=== PATIENT | male | born 1980 | race Caucasian/White ===

== ENCOUNTER 2023-09-05 02:47 | Day surgery (SDC) | payer OTHER, SELFPAY ==
[2023-08-22 13:00] VITALS: BMI 27.3
--- NOTE | 2023-09-03 08:27 | SUR.PREOP ---
Patient called regarding upcoming procedure. Message left on pt's voicemail regarding appointment times.
--- NOTE | 2023-09-04 09:07 | P.PNAN_ITS ---
Anes - Initial Pre Proc Eval Procedure: Operation Date: 09/05/23 10:00 Proposed Procedures p Screening Colonoscopy - Rey Parsons MD Date/Time: 09/04/23 09:07 Surgeon: Rey Parsons MD Pre Op Diagnosis: FA Hx colon CA Patient Data Age: 43 Gender: M Height: 1.89 m Weight: 97.7 kg Allergies Allergy/AdvReac Type Severity Reaction Status Date / Time Penicillins Allergy Rash Verified 09/05/23 09:09 Home Medications Medication Instructions Recorded Confirmed Type No Home Medications 08/22/23 09/05/23 History Patient hx anesthesia problems: none Family hx anesthesia problems: none Results Review: All pre-operative results and documents have been reviewed as part of the pre- operative evaluation. [facility] [place] Social History Social History Living arrangements: with family Spiritual care concerns: No Anes - Eval Final PreProcedure Day of Procedure 09/04/23 09:07 Patient weight: overweight Heart: regular rate and rhythm Lungs: clear to auscultation Airway: Mallampati scale class II Neurological: alert and oriented Last oral intake: >/= 8 hours ASA classification: I Emergent: no Anesthetic plan: proceed Anesthesia type and monitoring: general GIVS and standard monitoring Results Review: All pre-operative results and documents have been reviewed as part of the pre- operative evaluation. Informed Consent: The patient's anesthetic plan and its attendant risks and benefits were discussed with the patient/family/POA. Questions were solicited and answers provided to the satisfaction of the patient/family/POA.
[2023-09-05 09:10] VITALS: BP 127/93; PULSE 92; RESP 18; TEMP 36.4; O2SAT 99; BMI 26.6
--- NOTE | 2023-09-05 09:16 | PM.HPGS ---
History of Present Illness History of Present Illness Consent: Risks, benefits, and alternatives have been discussed and questions answered. Patient agrees to proceed with procedure. Chief complaint: FA Hx colon CA Narrative: Torres Leo is a 43 year old male referred for colon cancer screening. He has a family history of colon cancer. Review of Systems Review of Systems: All systems reviewed & are unremarkable except as noted in HPI and below PMFSH Social History Social History Living arrangements: with family Spiritual care concerns: No Meds Home Medications and Allergies Home Medications Medication Instructions Recorded Confirmed Type No Home Medications 08/22/23 09/05/23 History Allergies Allergy/AdvReac Type Severity Reaction Status Date / Time Penicillins Allergy Rash Verified 09/05/23 09:09 Vital Signs Vital Signs - 24 hr 09/05/23 09:10 Temperature 36.4 C Pulse Rate 92 Respiratory Rate 18 Blood Pressure 127/93 H Pulse Oximetry 99 Oxygen Delivery Room Air Exam Resp: Auscultation: clear to auscultation bilaterally Cardio: Rate: regular rate Rhythm: regular rhythm GI: GI Palp: Yes Soft to palpation and No Tenderness to palpation present (GI) Assessment and Plan Assessment and plan (1) Colon cancer screening: Code(s): Z12.11 - Encounter for screening for malignant neoplasm of colon Status: Acute Assessment and Plan: Colonoscopy with possible biopsy or polypectomy or cautery or injection of substances.
[2023-09-05] MEDS: LACTATED RINGERS 1,000 ML 150 ML IV CONT (09:24)
[2023-09-05 10:06] VITALS: BP 117/79; PULSE 77; RESP 18; O2SAT 96
[2023-09-05 10:16] VITALS: BP 114/81; PULSE 74; RESP 13; O2SAT 97
[2023-09-05 10:26] VITALS: BP 138/98; PULSE 81; RESP 21; O2SAT 100
== END 2023-09-05 10:39 | disposition home or self-care (01) ==
PROVIDERS: PCP Physician Assistant; Visit Provider Internal Medicine Gastroenterology
PROC: 0DJD8ZZ Inspection of Lower Intestinal Tract, Via Natural or Artificial Opening Endoscopic (ICD-10-PCS; CPT 45378; principal; 2023-09-05 10:00)
DX: Z12.11 Encounter for screening for malignant neoplasm of colon (principal); K57.30 Diverticulosis of large intestine without perforation or abscess without bleeding; Z80.0 Family history of malignant neoplasm of digestive organs
CPT/HCPCS: 45378; J7120

== ENCOUNTER 2024-01-16 13:34 | Outpatient (CLI) | payer OTHER, SELFPAY ==
--- NOTE | ~2024-01-16 | XR_ITS ---
XR lumbar spine 2-3V DATE: 01/16/2024 13:51 INDICATION: Low back pain TECHNIQUE: AP, lateral, cone-down lateral lumbosacral views COMPARISON: None FINDINGS: There is mild lumbar dextroscoliosis. No fracture or bone destruction or spondylolisthesis. Lumbar limits interspaces appear relatively pre served. The lumbar pedicles are intact. The sacroiliac joints appear normal. IMPRESSION: Mild dextroscoliosis Reviewed, dictated and finalized at location A. IMPRESSION: Mild dextroscoliosis
== END 2024-01-16 13:35 ==
PROVIDERS: PCP Physician Assistant; Visit Provider Physician Assistant
DX: M54.50 Low back pain, unspecified (principal)
CPT/HCPCS: 72100

== ENCOUNTER 2025-05-12 10:53 | Outpatient (CLI) | payer OTHER, SELFPAY ==
--- NOTE | ~2025-05-12 | XR_ITS ---
EXAMINATION: XR chest 2V 05/12/2025 11:19 INDICATION: Chest congestion and cough PROCEDURE: 2 view chest COMPARISON: No prior studies for comparison. FINDINGS: The lungs are clear. The cardiomediastinal silhouette is within normal limits. There are no pleural effusions. There is no pneumothorax suspected. IMPRESSION: 1: NO ACUTE CARDIOPULMONARY DISEASE. Reviewed, dictated and finalized at location O.
== END 2025-05-12 10:54 | disposition home or self-care (01) ==
PROVIDERS: PCP Physician Assistant; Visit Provider Physician Assistant
DX: R09.89 Other specified symptoms and signs involving the circulatory and respiratory systems (principal)
CPT/HCPCS: 71046